=== PATIENT | male | born 1940 | race Caucasian/White ===

== ENCOUNTER 2020-09-22 07:52 | Day surgery (SDC) | payer OTHER ==
[2020-09-14 15:50] LABS: BASOPHILS # (AUTO) 0.1 X10'3 (0-0.2); BASOPHILS % (AUTO) 0.9 % (0-1); EOSINOPHILS # (AUTO) 0.1 X10'3 (0-0.9); EOSINOPHILS % (AUTO) 1.2 % (0-6); LYMPHOCYTES # (AUTO) 1.5 X10'3 (1.1-4.8); LYMPHOCYTES % (AUTO) 21.4 % (21-51); MEAN CORPUSCULAR HEMOGLOBIN 31.4 PG (27.0-31.0); MEAN CORPUSCULAR HGB CONC 33.7 g/dL (33.0-36.5); MEAN CORPUSCULAR VOLUME 93.4 FL (78-98); MEAN PLATELET VOLUME 8.3 FL (7.4-10.4); MONOCYTES # (AUTO) 0.6 X10'3 (0-0.9); MONOCYTES % (AUTO) 7.9 % (2-12); NEUTROPHILS # (AUTO) 4.9 X10'3 (1.8-7.7); NEUTROPHILS % (AUTO) 68.6 % (42-75); PRE OP HEMATOCRIT 43.4 % (42.0-52.0); PRE OP HEMOGLOBIN 14.6 g/dL (14.0-17.9); PRE OP PLATELET COUNT 186 X10'3 (140-440); RED BLOOD COUNT 4.64 X10'6 (4.70-6.10); RED CELL DISTRIBUTION WIDTH 13.2 % (11.5-14.5)
[2020-09-14 16:04] LABS: ALBUMIN 3.9 G/DL (3.4-5.0); ALBUMIN/GLOBULIN RATIO 1.2 (1.1-1.5); ALKALINE PHOSPHATASE 150 IU/L (46-116); BLOOD UREA NITROGEN 20 MG/DL (7-18); BUN/CREATININE RATIO 17.7 (5.4-32.0); CHLORIDE 105 MMOL/L (99-107); CREATININE 1.13 MG/DL (0.60-1.10); PRE OP ALT 25 U/L (30-65); PRE OP ANION GAP 10 (8-16); PRE OP AST 20 U/L (10-37); PRE OP BILIRUB, TOTAL 0.4 MG/DL (0.0-1.0); PRE OP GLUCOSE 90 MG/DL (70-104); PRE OP POTASSIUM 3.8 MMOL/L (3.4-5.1); PRE OP SODIUM 141 MMOL/L (135-145); TOTAL CARBON DIOXIDE 25.6 MMOL/L (24-32); TOTAL PROTEIN 7.1 G/DL (6.4-8.2); eGFR 62 ML/MIN
[~2020-09-22] VITALS: Ht 172.7 cm; Wt 93.4 kg
[2020-09-22] VITALS (7 sets, daily range): BP systolic 140–167; BP diastolic 81–93
[~2020-09-22 07:52] MED LIST: IBUP-2697 PO; ceFAZolin 2gm in dextrose, iso 50 ML IV ONE; famotidine 20mg tablet PO ONE; ringers solution, lacted 1,000 ML IV SCH; vancomycin 1,500 MG in NS 300ml IV soln IV ONE
[2020-09-22] MEDS ORDERED: methylPREDNISolone sod succ 125mg/2ml vial ONE (09:50)
[2020-09-22] MEDS ORDERED: BUPIVAcaine/PF 2.5 mg/ml (0.25%) 30ml vial ONE (09:50)
[2020-09-22] MEDS ORDERED: midazolam 1 mg/ML 2ml injection ONE (10:04)
[2020-09-22] MEDS ORDERED: fentaNYL/PF 50MCG/1 ML 2ML syringe ONE (10:04)
[2020-09-22] MEDS ORDERED: propofol inj 20 ML IV ONE (10:20)
[2020-09-22] MEDS ORDERED: LIDOcaine 0.5% (5mg/ml) 50ml vial ONE (10:26)
--- NOTE | 2020-09-22 10:44 | NUR ---
Received from OR via [facility] , accompanied by Anesthesiologist MIHAI and report given by Anesthesiolgist. PATIENT WITH SPLINT TO RIGHT UE WITH NO DRAINAGE. SLING DONNED BY KAPIL HUYNH. +CA REFILL TO ALL FINGERS/ PWD AT THIS TIME WITH NO C.O. PAIN. VSS Addendum: 09/22/20 at 1055 by Raul Ahumada RN, RN Amended: Links added.
[2020-09-22] MEDS ORDERED: ondansetron/PF 4mg/2ml inj IV PRN (10:50)
[2020-09-22] MEDS ORDERED: ringers solution, lacted 1,000 ML IV SCH (10:50)
[2020-09-22] MEDS ORDERED: morphine 2 MG/ML inj. syringe IV PRN (10:50)
[2020-09-22] MEDS ORDERED: proCHLORperazine 10 MG/2 ml inj IV PRN (10:50)
[2020-09-22] MEDS ORDERED: acetaminophen 1,000mg/100ml IV 100 ML IV PRN (10:50)
[2020-09-22] MEDS ORDERED: meperidine/PF 25mg/ml syringe IV PRN ×3 (10:50)
[2020-09-22] MEDS ORDERED: morphine 4 MG/ML inj SYRINge IV PRN (10:50)
[2020-09-22] MEDS ORDERED: hydrALAZINE 20mg/ml inj. IV PRN (10:50)
[2020-09-22] MEDS ORDERED: labetalol 20mg/4ml (5mg/ml) syringe IV PRN (10:50)
--- NOTE | 2020-09-22 11:41 | NUR ---
All dc criteria for discharge home has been met. IV taken out without complications. All questions answered regarding dc paperwork. Vss. Significant other present to take patient home. Dressings cdi and vital signs stable. Taken out via wheelchair to personal vehicle where patient taken home by family/friend. Addendum: 09/22/20 at 1159 by Raul Ahumada RN, RN Amended: Links added.
== END 2020-09-22 11:34 | disposition home or self-care (01) ==
LOC: PAS 07:52
PROVIDERS: ATTEND Orthopaedic Surgery
DX: G56.01 Carpal tunnel syndrome, right upper limb (principal); G56.21 Lesion of ulnar nerve, right upper limb; M19.90 Unspecified osteoarthritis, unspecified site; E66.8 Other obesity; Z68.31 Body mass index [BMI] 31.0-31.9, adult; Z20.822 Contact with and (suspected) exposure to COVID-19; Z95.0 Presence of cardiac pacemaker; Z79.899 Other long term (current) drug therapy
CPT/HCPCS: 36415; 64719; 64721; 80053; 82948; 85025; 93005; A6222; J2001; J2250; J2704; J2930; J3010; J3370; J3490; J7040; U0003; A4215; A4618; A6449; A7000; J7120

== ENCOUNTER 2021-08-14 06:07 | Day surgery (SDC) | payer OTHER ==
[2021-08-14] VITALS (7 sets, daily range): BP systolic 152–168; BP diastolic 72–86
[~2021-08-14] VITALS: Ht 175.3 cm; Wt 87.0 kg
[~2021-08-14 06:07] MED LIST changes: -ceFAZolin 2gm in dextrose, iso 50 ML IV ONE; -famotidine 20mg tablet PO ONE; -ringers solution, lacted 1,000 ML IV SCH; -vancomycin 1,500 MG in NS 300ml IV soln IV ONE
[2021-08-14] MEDS ORDERED: cefazolin/dext.iso 2gm/50ml 50 ML IV ONE (06:47)
[2021-08-14] MEDS ORDERED: vancomycin/NS 1 GM ADD-VANTAGE 250 ML X 1 DOSE IV ONE (06:50)
[2021-08-14] MEDS ORDERED: normal saline 1000ml 1,000 ML IV SCH (06:50)
[2021-08-14] MEDS ORDERED: DORZ10DR10 LEFTEYE (07:03)
[2021-08-14] MEDS ORDERED: AMLO2.5T4 PO (07:03)
[2021-08-14] MEDS ORDERED: DORZ10DR10 RIGHTEYE (07:03)
[2021-08-14 08:09] LABS: BASOPHILS % (AUTO) 0.6 % (0-1); EOSINOPHILS # (AUTO) 0.2 X10'3 (0-0.9); EOSINOPHILS % (AUTO) 2.8 % (0-6); HEMATOCRIT 37.8 % (42.0-52.0); HEMOGLOBIN 12.8 g/dl (14.0-17.9); MEAN CORPUSCULAR HGB CONC 33.8 g/dL (33.0-36.5); MEAN CORPUSCULAR VOLUME 94.8 FL (78-98); MEAN PLATELET VOLUME 7.8 FL (7.4-10.4); MONOCYTES # (AUTO) 0.6 X10'3 (0-0.9); MONOCYTES % (AUTO) 8.6 % (2-12); NEUTROPHILS # (AUTO) 5.1 X10'3 (1.8-7.7); PLATELET COUNT 294 X10'3 (140-440); RED BLOOD COUNT 3.99 X10'6 (4.70-6.10); RED CELL DISTRIBUTION WIDTH 13.6 % (11.5-14.5); WHITE BLOOD COUNT 6.9 X10'3 (4.5-11.0)
[2021-08-14 08:10] LABS: ANION GAP 9 (8-16); BLOOD UREA NITROGEN 18 MG/DL (7-18); BUN/CREATININE RATIO 18.6 (5.4-32.0); CALCIUM 8.4 MG/DL (8.5-10.1); CHLORIDE 107 MMOL/L (99-107); CREATININE 0.97 MG/DL (0.60-1.10); GLUCOSE 111 MG/DL (70-104); POTASSIUM 4.5 MMOL/L (3.5-5.1); SODIUM 141 MMOL/L (135-145); TOTAL CARBON DIOXIDE 24.8 MMOL/L (24-32); eGFR 74 ML/MIN
[2021-08-14] MEDS ORDERED: vancomycin 1,000mg inj ONE (08:37)
[2021-08-14] MEDS ORDERED: fentaNYL/PF 50MCG/1 ML 2ML syringe ONE (08:37)
[2021-08-14] MEDS ORDERED: midazolam 1 mg/ML 2ml injection ONE ×2 (08:37→10:00)
[2021-08-14] MEDS ORDERED: LIDOCAINE 2% w/EPI 1:100:000 30mL injection MDV**cath lab 1 only ONE (08:49)
[2021-08-14] MEDS ORDERED: HYDROcodone/acetaminophen 10/325mg tab PO PRN (11:30)
[2021-08-14] MEDS ORDERED: HYDROcodone/acetaminophen 5mg/325mg tablet PO PRN (11:30)
--- NOTE | 2021-08-14 11:46 | NUR ---
Delay in fuel cell battery technician present for cxr but states machine not connecting. new machine on way from xray
== END 2021-08-14 12:50 | disposition home or self-care (01) ==
LOC: SSTAY O 06:07
PROVIDERS: ATTEND Internal Medicine Cardiovascular Disease
DX: Z45.010 Encounter for checking and testing of cardiac pacemaker pulse generator [battery] (principal); I10 Essential (primary) hypertension; Z79.01 Long term (current) use of anticoagulants; Z79.899 Other long term (current) drug therapy
CPT/HCPCS: 33208; 33233; 33234; 36415; 71045; 80048; 83735; 85025; 85610; 93005; 99152; 99153; C1785; C1894; C1898; J2250; J3010; J3370; J3490; J7030; 33216; 33228; A4565; A4620; A6258

== ENCOUNTER 2021-11-10 22:14 | Inpatient (IN) | payer OTHER, MEDICARE ==
[~2021-11-10] VITALS: Ht 175.3 cm; Wt 89.0 kg
[~2021-11-10 22:14] MED LIST changes: +AMLO2.5T4 PO; +DORZ10DR10 EACHEYE; +DORZ10DR10 LEFTEYE
--- NOTE | 2021-11-10 22:31 | NUR ---
AGREE WITH LVNS TRIAGE
[2021-11-10] MEDS ORDERED: normal saline 1000ML IV soln IVB ONE (22:50)
[2021-11-10] MEDS ORDERED: ondansetron/PF 4mg/2ml inj IV ONE (22:50)
[2021-11-10 23:02] LABS: BASOPHILS % (AUTO) 0.4 % (0-1); EOSINOPHILS # (AUTO) 0.1 X10'3 (0-0.9); EOSINOPHILS % (AUTO) 0.5 % (0-6); HEMATOCRIT 26.6 % (42.0-52.0); HEMOGLOBIN 8.9 g/dl (14.0-17.9); LYMPHOCYTES # (AUTO) 1.5 X10'3 (1.1-4.8); LYMPHOCYTES % (AUTO) 14.9 % (21-51); MEAN CORPUSCULAR HGB CONC 33.4 g/dL (33.0-36.5); MEAN CORPUSCULAR VOLUME 92.6 FL (78-98); MEAN PLATELET VOLUME 7.8 FL (7.4-10.4); MONOCYTES # (AUTO) 0.5 X10'3 (0-0.9); MONOCYTES % (AUTO) 4.9 % (2-12); NEUTROPHILS # (AUTO) 8.2 X10'3 (1.8-7.7); NEUTROPHILS % (AUTO) 79.3 % (42-75); PLATELET COUNT 217 X10'3 (140-440); RED BLOOD COUNT 2.87 X10'6 (4.70-6.10); WHITE BLOOD COUNT 10.3 X10'3 (4.5-11.0)
[2021-11-10 23:16] LABS: ALANINE AMINOTRANSFERASE 15 U/L (12-78); ALBUMIN 3.1 G/DL (3.4-5.0); ALBUMIN/GLOBULIN RATIO 1.2 (1.1-1.5); ALKALINE PHOSPHATASE 93 IU/L (46-116); ANION GAP 5 (8-16); ASPARTATE AMINO TRANSFERASE 11 U/L (10-37); BILIRUBIN,TOTAL 0.2 MG/DL (0.1-1.0); BLOOD UREA NITROGEN 35 MG/DL (7-18); BUN/CREATININE RATIO 28.2 (5.4-32.0); CHLORIDE 109 MMOL/L (99-107); CREATININE 1.24 MG/DL (0.60-1.10); GLUCOSE 199 MG/DL (70-104); POTASSIUM 4.8 MMOL/L (3.5-5.1); SODIUM 137 MMOL/L (135-145); TOTAL CARBON DIOXIDE 22.9 MMOL/L (24-32); TOTAL PROTEIN 5.6 G/DL (6.4-8.2); eGFR 56 ML/MIN
[2021-11-11] VITALS (7 sets, daily range): BP systolic 116–170; BP diastolic 61–92
[2021-11-11 00:05] LABS: HEMATOCRIT 24.2 % (42.0-52.0); HEMOGLOBIN 8.2 g/dl (14.0-17.9); MEAN CORPUSCULAR HGB CONC 34.1 g/dL (33.0-36.5); MEAN CORPUSCULAR VOLUME 93.8 FL (78-98); MEAN PLATELET VOLUME 7.9 FL (7.4-10.4); PLATELET COUNT 192 X10'3 (140-440); RED BLOOD COUNT 2.58 X10'6 (4.70-6.10); RED CELL DISTRIBUTION WIDTH 13.9 % (11.5-14.5); WHITE BLOOD COUNT 10.5 X10'3 (4.5-11.0)
[2021-11-11] MEDS ORDERED: acetaminophen 325mg tablet PO PRN ×2 (00:45)
[2021-11-11] MEDS ORDERED: magnesium Cl slow-release 64mg tablet PO PRN (00:45)
[2021-11-11] MEDS ORDERED: magnesium 2GM in 50ml NS 50 ML IV PRN (00:45)
[2021-11-11] MEDS ORDERED: potassium CL 10mEq/100ml bag 100 ML IV PRN (00:45)
[2021-11-11] MEDS ORDERED: ondansetron/PF 4mg/2ml inj IV PRN (00:45)
[2021-11-11] MEDS ORDERED: HYDROcodone/acetaminophen 5mg/325mg tablet PO PRN (00:45)
[2021-11-11] MEDS ORDERED: POTASSIUM BICARB 20meq eff tab 20 MEQ TABLET.EFF PO PRN ×2 (00:45)
[2021-11-11] MEDS ORDERED: morphine 2 MG/ML inj. syringe IV PRN (00:45)
[2021-11-11] MEDS ORDERED: mag hydrox/Alum hydrox/simeth 30ml oral suspension PO PRN (00:45)
[2021-11-11] MEDS ORDERED: magnesium 4gm in 100ml NS 100 ML IV PRN (00:45)
[2021-11-11] MEDS: normal saline 1000ml 1,000 ML IV SCH ×3 (01:09→21:40)
[2021-11-11 03:16] LABS: CLARITY,URINE CLEAR (Clear); COLOR,URINE YELLOW (Yellow); GLUCOSE, URINE NEGATIVE (Neg); KETONES,URINE NEGATIVE (Neg); LEUKOCYTE ESTERASE ,URINE NEGATIVE (Neg); NITRITES, URINE NEGATIVE (Neg); OCCULT BLOOD,URINE NEGATIVE (Neg); PH,URINE 5.5 (4.8-8.0); PROTEIN,URINE NEGATIVE (Neg); UROBILINOGEN,URINE 0.2 E.U/dL (0.2-1.0)
[2021-11-11 03:21] LABS: UA COLLECTION TYPE CLN CATCH MIDSTREAM
[2021-11-11 07:31] LABS: BASOPHILS # (AUTO) 0.1 X10'3 (0-0.2); BASOPHILS % (AUTO) 0.6 % (0-1); EOSINOPHILS # (AUTO) 0.1 X10'3 (0-0.9); HEMATOCRIT 27.8 % (42.0-52.0); HEMOGLOBIN 9.3 g/dl (14.0-17.9); LYMPHOCYTES # (AUTO) 1.9 X10'3 (1.1-4.8); LYMPHOCYTES % (AUTO) 20.3 % (21-51); MEAN CORPUSCULAR HEMOGLOBIN 31.4 PG (27.0-31.0); MEAN CORPUSCULAR HGB CONC 33.4 g/dL (33.0-36.5); MEAN CORPUSCULAR VOLUME 93.8 FL (78-98); MEAN PLATELET VOLUME 7.8 FL (7.4-10.4); MONOCYTES # (AUTO) 0.6 X10'3 (0-0.9); MONOCYTES % (AUTO) 5.9 % (2-12); NEUTROPHILS # (AUTO) 6.9 X10'3 (1.8-7.7); NEUTROPHILS % (AUTO) 72.2 % (42-75); PLATELET COUNT 180 X10'3 (140-440); RED BLOOD COUNT 2.96 X10'6 (4.70-6.10); RED CELL DISTRIBUTION WIDTH 14.3 % (11.5-14.5); WHITE BLOOD COUNT 9.6 X10'3 (4.5-11.0)
[2021-11-11 07:40] LABS: % IRON SATURATION 79 % (11-46); IRON 213 UG/DL (53-167); TOTAL IRON BINDING CAPACITY 269 UG/DL (259-388)
[2021-11-11] MEDS: pantoprazole 40MG/NS 100ML BAG 100 ML IV SCH ×2 (08:40→19:53)
[2021-11-11] MEDS: metroNIDAZOLE-Flagyl 500mg/NS 100 ML IV SCH ×3 (08:40→23:59)
[2021-11-11] MEDS: amLODIPine 2.5mg tablet PO SCH (08:42)
[2021-11-11] MEDS: K and/or MAG REPLACEMENT MC SCH ×2 (08:50→20:00)
[2021-11-11] MEDS: dorzolamide/timolol (Cosopt) ophthalmic drops 10ml bottle EACHEYE SCH ×2 (10:10→19:58)
[2021-11-11] MEDS: ciprofloxacin lact 400MG/200ML 200 ML IV SCH ×2 (10:11→21:37)
--- NOTE | 2021-11-11 12:00 | NUR ---
attempted to call report, transferred x3 times, no answer
--- NOTE | 2021-11-11 12:18 | NUR ---
Patient in room ED 9. I have received report from Kathryn DICK and had the opportunity to ask questions and assume patient care.
[2021-11-11] MEDS ORDERED: PEG 3350/Na sulf,bicarb,Cl/KCl oral sol 4 liter bottle PO ONE (12:45)
[2021-11-11] MEDS ORDERED: temazepam 15mg capsule PO PRN (21:00)
[2021-11-12] VITALS (8 sets, daily range): BP systolic 106–150; BP diastolic 54–76
[2021-11-12 06:14] LABS: ALANINE AMINOTRANSFERASE 13 U/L (12-78); ALBUMIN 2.6 G/DL (3.4-5.0); ALBUMIN/GLOBULIN RATIO 1.2 (1.1-1.5); ALKALINE PHOSPHATASE 72 IU/L (46-116); ANION GAP 7 (8-16); ASPARTATE AMINO TRANSFERASE 14 U/L (10-37); BILIRUBIN,TOTAL 0.3 MG/DL (0.1-1.0); BLOOD UREA NITROGEN 18 MG/DL (7-18); BUN/CREATININE RATIO 18.9 (5.4-32.0); CALCIUM 7.5 MG/DL (8.5-10.1); CHLORIDE 114 MMOL/L (99-107); CREATININE 0.95 MG/DL (0.60-1.10); GLUCOSE 105 MG/DL (70-104); MAGNESIUM 1.9 MG/DL (1.5-2.4); PHOSPHORUS 2.6 MG/DL (2.3-4.5); POTASSIUM 3.8 MMOL/L (3.5-5.1); SODIUM 145 MMOL/L (135-145); TOTAL CARBON DIOXIDE 24.5 MMOL/L (24-32); TOTAL PROTEIN 4.7 G/DL (6.4-8.2); eGFR 76 ML/MIN
[2021-11-12 06:26] LABS: BASOPHILS % (AUTO) 0.6 % (0-1); EOSINOPHILS # (AUTO) 0.2 X10'3 (0-0.9); EOSINOPHILS % (AUTO) 2.4 % (0-6); HEMATOCRIT 23.2 % (42.0-52.0); HEMOGLOBIN 7.8 g/dl (14.0-17.9); LYMPHOCYTES # (AUTO) 1.4 X10'3 (1.1-4.8); LYMPHOCYTES % (AUTO) 22.6 % (21-51); MEAN CORPUSCULAR HEMOGLOBIN 31.5 PG (27.0-31.0); MEAN CORPUSCULAR HGB CONC 33.8 g/dL (33.0-36.5); MEAN CORPUSCULAR VOLUME 93.2 FL (78-98); MEAN PLATELET VOLUME 7.9 FL (7.4-10.4); MONOCYTES # (AUTO) 0.4 X10'3 (0-0.9); MONOCYTES % (AUTO) 6.8 % (2-12); NEUTROPHILS # (AUTO) 4.3 X10'3 (1.8-7.7); NEUTROPHILS % (AUTO) 67.6 % (42-75); PLATELET COUNT 150 X10'3 (140-440); RED BLOOD COUNT 2.49 X10'6 (4.70-6.10); RED CELL DISTRIBUTION WIDTH 14.5 % (11.5-14.5); WHITE BLOOD COUNT 6.3 X10'3 (4.5-11.0)
--- NOTE | 2021-11-12 06:42 | NUR ---
Problems reprioritized. Patient report given, questions answered & plan of care reviewed with JASSI DICK.
[2021-11-12] MEDS: normal saline 1000ml 1,000 ML IV SCH ×2 (06:45→10:59)
[2021-11-12] MEDS: K and/or MAG REPLACEMENT MC SCH ×2 (07:05→20:00)
[2021-11-12] MEDS: pantoprazole 40MG/NS 100ML BAG 100 ML IV SCH ×2 (07:57→20:09)
[2021-11-12] MEDS: dorzolamide/timolol (Cosopt) ophthalmic drops 10ml bottle EACHEYE SCH ×2 (08:00→22:19)
[2021-11-12] MEDS: amLODIPine 2.5mg tablet PO SCH (08:10)
[2021-11-12] MEDS ORDERED: fentaNYL/PF 50MCG/1 ML 2ML syringe ONE (08:38)
[2021-11-12] MEDS ORDERED: MIDAZolam 1 MG/ML 5ML VIAL ONE (08:39)
[2021-11-12] MEDS: metroNIDAZOLE-Flagyl 500mg/NS 100 ML IV SCH ×2 (10:59→17:07)
[2021-11-12] MEDS: ciprofloxacin lact 400MG/200ML 200 ML IV SCH ×2 (12:15→22:19)
[2021-11-12 15:00] LABS: BASOPHILS # (AUTO) 0.1 X10'3 (0-0.2); BASOPHILS % (AUTO) 0.9 % (0-1); EOSINOPHILS # (AUTO) 0.1 X10'3 (0-0.9); HEMATOCRIT 24.1 % (42.0-52.0); MEAN CORPUSCULAR HGB CONC 33.2 g/dL (33.0-36.5); MEAN CORPUSCULAR VOLUME 93.4 FL (78-98); MEAN PLATELET VOLUME 7.2 FL (7.4-10.4); MONOCYTES # (AUTO) 0.4 X10'3 (0-0.9); MONOCYTES % (AUTO) 6.8 % (2-12); NEUTROPHILS # (AUTO) 4.4 X10'3 (1.8-7.7); NEUTROPHILS % (AUTO) 73.3 % (42-75); PLATELET COUNT 158 X10'3 (140-440); RED BLOOD COUNT 2.58 X10'6 (4.70-6.10); RED CELL DISTRIBUTION WIDTH 14.4 % (11.5-14.5); WHITE BLOOD COUNT 6.1 X10'3 (4.5-11.0)
--- NOTE | 2021-11-12 18:25 | NUR ---
REPORT GIVEN TO KACI DICK, SHE IS RESUMING CARE OF PATIENT. PATIENT DOING WELL.
[2021-11-13] MEDS: metroNIDAZOLE-Flagyl 500mg/NS 100 ML IV SCH ×2 (00:03→08:52)
[2021-11-13 02:00] VITALS: BP 104/57
[2021-11-13] MEDS: normal saline 1000ml 1,000 ML IV SCH (02:45)
--- NOTE | 2021-11-13 05:58 | NUR ---
PATIENT SLEPT WELL THROUGH THE NIGHT WITHOUT ANY C/O PAIN AND NO BLOODY STOOLS. STATED ANXIOUS TO GO HOME TODAY. REPORT TO EARLY SHIFT
[2021-11-13 06:00] VITALS: BP 122/65
--- NOTE | 2021-11-13 06:38 | NUR ---
Problems reprioritized. Patient report given, questions answered & plan of care reviewed with PATSY DICK.
[2021-11-13 06:46] LABS: BASOPHILS % (AUTO) 0.6 % (0-1); EOSINOPHILS # (AUTO) 0.2 X10'3 (0-0.9); EOSINOPHILS % (AUTO) 2.2 % (0-6); HEMATOCRIT 23.6 % (42.0-52.0); LYMPHOCYTES # (AUTO) 1.4 X10'3 (1.1-4.8); LYMPHOCYTES % (AUTO) 19.1 % (21-51); MEAN CORPUSCULAR HEMOGLOBIN 31.5 PG (27.0-31.0); MEAN CORPUSCULAR HGB CONC 33.8 g/dL (33.0-36.5); MEAN CORPUSCULAR VOLUME 93.3 FL (78-98); MEAN PLATELET VOLUME 7.6 FL (7.4-10.4); MONOCYTES # (AUTO) 0.6 X10'3 (0-0.9); MONOCYTES % (AUTO) 7.8 % (2-12); NEUTROPHILS # (AUTO) 5.2 X10'3 (1.8-7.7); NEUTROPHILS % (AUTO) 70.3 % (42-75); PLATELET COUNT 168 X10'3 (140-440); RED BLOOD COUNT 2.53 X10'6 (4.70-6.10); RED CELL DISTRIBUTION WIDTH 14.5 % (11.5-14.5); WHITE BLOOD COUNT 7.3 X10'3 (4.5-11.0)
[2021-11-13 07:04] LABS: ALANINE AMINOTRANSFERASE 12 U/L (12-78); ALBUMIN 2.6 G/DL (3.4-5.0); ALBUMIN/GLOBULIN RATIO 1.1 (1.1-1.5); ALKALINE PHOSPHATASE 81 IU/L (46-116); ANION GAP 8 (8-16); ASPARTATE AMINO TRANSFERASE 18 U/L (10-37); BILIRUBIN,TOTAL 0.3 MG/DL (0.1-1.0); BLOOD UREA NITROGEN 11 MG/DL (7-18); BUN/CREATININE RATIO 10.5 (5.4-32.0); CALCIUM 7.6 MG/DL (8.5-10.1); CHLORIDE 113 MMOL/L (99-107); CREATININE 1.05 MG/DL (0.60-1.10); GLUCOSE 103 MG/DL (70-104); MAGNESIUM 1.7 MG/DL (1.5-2.4); POTASSIUM 3.4 MMOL/L (3.5-5.1); SODIUM 144 MMOL/L (135-145); TOTAL CARBON DIOXIDE 22.7 MMOL/L (24-32); TOTAL PROTEIN 4.9 G/DL (6.4-8.2); eGFR 68 ML/MIN
[2021-11-13] MEDS: K and/or MAG REPLACEMENT MC SCH (08:00)
[2021-11-13] MEDS ORDERED: PANT40TA54 PO (08:29)
[2021-11-13] MEDS ORDERED: CIPR-202 PO (08:29)
[2021-11-13] MEDS ORDERED: METR-159 PO (08:29)
[2021-11-13] MEDS: pantoprazole 40MG/NS 100ML BAG 100 ML IV SCH (08:52)
[2021-11-13] MEDS: ciprofloxacin lact 400MG/200ML 200 ML IV SCH (08:52)
[2021-11-13] MEDS: dorzolamide/timolol (Cosopt) ophthalmic drops 10ml bottle EACHEYE SCH (08:53)
[2021-11-13] MEDS: amLODIPine 2.5mg tablet PO SCH (08:53)
[2021-11-13 10:00] VITALS: BP 136/63
[2021-11-15 10:50] LABS: OCCULT BLOOD STOOL POSITIVE (Neg)
== END 2021-11-13 13:10 | disposition home or self-care (01) | DRG 379 ==
LOC: ER 22:15 → ED HOLD 11-11 00:53 → ORTHO 4S 11-11 12:45
PROVIDERS: ADMIT Internal Medicine; ATTEND Family Medicine
PROC: 30233N1 Transfusion of Nonautologous Red Blood Cells into Peripheral Vein, Percutaneous Approach (ICD-10-PCS; 2021-11-11)
PROC: 0DBN8ZZ Excision of Sigmoid Colon, Via Natural or Artificial Opening Endoscopic (ICD-10-PCS; principal; 2021-11-12)
PROC: 0DBL8ZZ Excision of Transverse Colon, Via Natural or Artificial Opening Endoscopic (ICD-10-PCS; 2021-11-12)
DX: K57.31 Diverticulosis of large intestine without perforation or abscess with bleeding (principal); K63.5 Polyp of colon; I25.10 Atherosclerotic heart disease of native coronary artery without angina pectoris; M19.90 Unspecified osteoarthritis, unspecified site; F17.290 Nicotine dependence, other tobacco product, uncomplicated; N18.30 Chronic kidney disease, stage 3 unspecified; D64.9 Anemia, unspecified; M54.9 Dorsalgia, unspecified; Z20.822 Contact with and (suspected) exposure to COVID-19; I12.9 Hypertensive chronic kidney disease with stage 1 through stage 4 chronic kidney disease, or unspecified chronic kidney disease; Z66 Do not resuscitate; Z86.16 Personal history of COVID-19; Z95.0 Presence of cardiac pacemaker; Z79.899 Other long term (current) drug therapy
CPT/HCPCS: 36415; 36430; 45380; 45385; 71045; 74176; 80053; 81003; 82272; 83540; 83550; 83605; 83735; 84100; 84145; 84443; 85025; 85027; 85610; 86885; 86900; 86901; 86920; 87040; 87081; 87635; 99152; 99153; 99285; A4620; C1773; C9113; G0378; J0744; J2250; J2405; J3010; J3490; J7030; P9016

== ENCOUNTER 2023-12-10 08:07 | Inpatient (IN) | payer OTHER, MEDICARE ==
[~2023-12-10] VITALS: Ht 175.3 cm; Wt 84.3 kg
[~2023-12-10 08:07] MED LIST changes: -DORZ10DR10 EACHEYE; -DORZ10DR10 LEFTEYE; -IBUP-2697 PO; +PANT40TA54 PO
[2023-12-10] MEDS ORDERED: iohexol 350MG/ML 100ml bottle IV ONE (08:14)
[2023-12-10 08:55] LABS: BASOPHILS % (AUTO) 0.5 % (0-1); EOSINOPHILS # (AUTO) 0.1 X10'3 (0-0.9); EOSINOPHILS % (AUTO) 1.1 % (0-6); HEMATOCRIT 38.3 % (42.0-52.0); HEMOGLOBIN 12.7 g/dl (14.0-17.9); LYMPHOCYTES # (AUTO) 0.9 X10'3 (1.1-4.8); LYMPHOCYTES % (AUTO) 15.1 % (21-51); MEAN CORPUSCULAR HEMOGLOBIN 32.2 PG (27.0-31.0); MEAN CORPUSCULAR HGB CONC 33.1 g/dL (33.0-36.5); MEAN CORPUSCULAR VOLUME 97.3 FL (78-98); MONOCYTES # (AUTO) 0.5 X10'3 (0-0.9); MONOCYTES % (AUTO) 8.9 % (2-12); NEUTROPHILS # (AUTO) 4.3 X10'3 (1.8-7.7); NEUTROPHILS % (AUTO) 74.4 % (42-75); PLATELET COUNT 168 X10'3 (140-440); RED BLOOD COUNT 3.94 X10'6 (4.70-6.10); RED CELL DISTRIBUTION WIDTH 13.6 % (11.5-14.5); WHITE BLOOD COUNT 5.7 X10'3 (4.5-11.0)
[2023-12-10 08:59] LABS: ANION GAP 9 (8-16); BLOOD UREA NITROGEN 19 MG/DL (7-18); BUN/CREATININE RATIO 17.1 (10.0-20.0); CALCIUM 7.9 MG/DL (8.5-10.1); CHLORIDE 105 MMOL/L (99-107); CREATININE 1.11 MG/DL (0.60-1.10); GLUCOSE 108 MG/DL (70-104); POTASSIUM 3.7 MMOL/L (3.5-5.1); SODIUM 137 MMOL/L (135-145); TOTAL CARBON DIOXIDE 22.7 MMOL/L (24-32); eGFR 63 ML/MIN
[2023-12-10 09:02] LABS: APTT 27 SECONDS (22-32); INR 1.1 INR; PROTHROMBIN TIME 11.5 SECONDS (9.0-12.0)
[2023-12-10] MEDS ORDERED: mag hydrox/Alum hydrox/simeth 30ml oral suspension PO PRN (09:35)
[2023-12-10] MEDS ORDERED: potassium Cl 20 mEq SR tablet PO PRN ×2 (09:35)
[2023-12-10] MEDS ORDERED: magnesium 2GM in 50ml NS 50 ML IV PRN (09:35)
[2023-12-10] MEDS ORDERED: potassium Cl 40MEQ/1/2NS 520ml 520 ML IV PRN (09:35)
[2023-12-10] MEDS ORDERED: magnesium 4gm in 100ml NS 100 ML IV PRN (09:35)
[2023-12-10] MEDS ORDERED: magnesium hydroxide 30ml (MOM) UD suspension PO PRN (09:35)
[2023-12-10] MEDS ORDERED: magnesium Cl slow-release 64mg tablet PO PRN (09:35)
[2023-12-10] MEDS ORDERED: ondansetron/PF 4mg/2ml inj IV PRN (09:35)
[2023-12-10] MEDS ORDERED: acetaminophen 325mg tablet PO PRN ×2 (09:35)
[2023-12-10] MEDS: clopidogrel 300mg tablet PO ONE (09:41)
[2023-12-10] MEDS: atorvastatin 20mg tablet PO SCH (09:41)
[2023-12-10] MEDS: aspirin 325mg tablet PO ONE (09:41)
[2023-12-10 10:05] LABS: CHOL/HDL RATIO 5.1 (0.00-4.99); CHOLESTEROL 152 MG/DL (0-200); HDL CHOLESTEROL 30 MG/DL (35-60); LDL CHOLESTEROL 104 MG/DL (50-100); TRIGLYCERIDES 104 MG/DL (20-135)
[2023-12-10] MEDS: normal saline 1000ml 1,000 ML IV SCH (10:06)
[2023-12-10] MEDS: enoxaparin 40mg/0.4ml syringe SUBCUT SCH (10:06)
[2023-12-10 11:13] LABS: BILIRUBIN,URINE NEGATIVE (Neg); CLARITY,URINE CLEAR (Clear); COLOR,URINE YELLOW (Yellow); GLUCOSE, URINE NEGATIVE (Neg); KETONES,URINE NEGATIVE (Neg); LEUKOCYTE ESTERASE ,URINE NEGATIVE (Neg); NITRITES, URINE NEGATIVE (Neg); OCCULT BLOOD,URINE NEGATIVE (Neg); PROTEIN,URINE NEGATIVE (Neg); UROBILINOGEN,URINE 0.2 E.U/dL (0.2-1.0)
[2023-12-10 11:16] LABS: UA COLLECTION TYPE CLN CATCH MIDSTREAM
[2023-12-10 11:42] LABS: URINE AMPHETAMINE SCREEN NEGATIVE (Neg); URINE BARBITUATE SCREEN NEGATIVE (Neg); URINE BENZODIAZEPINES SCREEN NEGATIVE (Neg); URINE CANNABINOID SCREEN NEGATIVE (Neg); URINE COCAINE SCREEN NEGATIVE (Neg); URINE METHADONE SCREEN NEGATIVE (Neg); URINE OPIATE SCREEN NEGATIVE (Neg); URINE PHENCYCLIDINE SCREEN NEGATIVE (Neg)
[2023-12-10] MEDS ORDERED: docusate sod 100mg capsule PO SCH (20:00)
[2023-12-10 21:45] VITALS: BP 157/59; PULSE 47; RESP 15; TEMP 98.1; O2SAT 96
[2023-12-11 02:00] VITALS: BP 129/63; PULSE 81; RESP 15; TEMP 98.3; O2SAT 96
[2023-12-11 06:30] LABS: BASOPHILS % (AUTO) 0.6 % (0-1); EOSINOPHILS # (AUTO) 0.1 X10'3 (0-0.9); EOSINOPHILS % (AUTO) 1.9 % (0-6); HEMATOCRIT 42.6 % (42.0-52.0); HEMOGLOBIN 14.4 g/dl (14.0-17.9); LYMPHOCYTES # (AUTO) 1.1 X10'3 (1.1-4.8); LYMPHOCYTES % (AUTO) 18.4 % (21-51); MEAN CORPUSCULAR HEMOGLOBIN 32.9 PG (27.0-31.0); MEAN CORPUSCULAR HGB CONC 33.9 g/dL (33.0-36.5); MEAN CORPUSCULAR VOLUME 97.1 FL (78-98); MEAN PLATELET VOLUME 7.8 FL (7.4-10.4); MONOCYTES # (AUTO) 0.6 X10'3 (0-0.9); MONOCYTES % (AUTO) 9.1 % (2-12); NEUTROPHILS # (AUTO) 4.3 X10'3 (1.8-7.7); PLATELET COUNT 171 X10'3 (140-440); RED BLOOD COUNT 4.39 X10'6 (4.70-6.10); RED CELL DISTRIBUTION WIDTH 13.5 % (11.5-14.5); WHITE BLOOD COUNT 6.2 X10'3 (4.5-11.0)
[2023-12-11 07:04] LABS: ALANINE AMINOTRANSFERASE 20 U/L (12-78); ALBUMIN 3.5 G/DL (3.4-5.0); ALBUMIN/GLOBULIN RATIO 1.1 (1.1-1.5); ALKALINE PHOSPHATASE 103 IU/L (46-116); ANION GAP 6 (8-16); ASPARTATE AMINO TRANSFERASE 19 U/L (10-37); BILIRUBIN,TOTAL 0.6 MG/DL (0.1-1.0); BLOOD UREA NITROGEN 14 MG/DL (7-18); BUN/CREATININE RATIO 14.3 (10.0-20.0); CALCIUM 8.4 MG/DL (8.5-10.1); CHLORIDE 109 MMOL/L (99-107); CREATININE 0.98 MG/DL (0.60-1.10); GLUCOSE 105 MG/DL (70-104); POTASSIUM 3.8 MMOL/L (3.5-5.1); SODIUM 142 MMOL/L (135-145); TOTAL CARBON DIOXIDE 26.6 MMOL/L (24-32); TOTAL PROTEIN 6.7 G/DL (6.4-8.2); eCRCL 29 ML/MIN; eGFR 73 ML/MIN
[2023-12-11] MEDS ORDERED: atorvastatin 20mg tablet PO SCH (08:00)
[2023-12-11] MEDS: aspirin 81mg, enteric-coated 1 TAB TABLET.DR PO SCH (08:46)
[2023-12-11] MEDS: atorvastatin 20mg tablet PO SCH (08:47)
[2023-12-11] MEDS: clopidogrel 75mg tablet PO SCH (08:47)
[2023-12-11 10:00] VITALS: BP 133/72; PULSE 58; RESP 17; TEMP 98.1; O2SAT 99
[2023-12-11] MEDS ORDERED: LISI5TAB22 PO (13:25)
[2023-12-11] MEDS ORDERED: ATOR20TA66 PO (13:25)
[2023-12-11] MEDS ORDERED: ASPI-1071 PO (13:25)
[2023-12-11] MEDS ORDERED: CLOP75TA34 PO (13:25)
[2023-12-12] MEDS ORDERED: atorvastatin 20mg tablet PO SCH (08:00)
== END 2023-12-11 15:08 | disposition home or self-care (01) | DRG 65 ==
LOC: ER 08:07 → ED HOLD 09:36 → ORTHO 4S 21:35
PROVIDERS: ADMIT Internal Medicine; ATTEND Internal Medicine
PROC: B3251ZZ Computerized Tomography (CT Scan) of Bilateral Common Carotid Arteries using Low Osmolar Contrast (ICD-10-PCS; principal; 2023-12-10)
PROC: B32G1ZZ Computerized Tomography (CT Scan) of Bilateral Vertebral Arteries using Low Osmolar Contrast (ICD-10-PCS; 2023-12-10)
PROC: B32R1ZZ Computerized Tomography (CT Scan) of Intracranial Arteries using Low Osmolar Contrast (ICD-10-PCS; 2023-12-10)
PROC: B3281ZZ Computerized Tomography (CT Scan) of Bilateral Internal Carotid Arteries using Low Osmolar Contrast (ICD-10-PCS; 2023-12-10)
DX: I63.89 Other cerebral infarction (principal); G81.94 Hemiplegia, unspecified affecting left nondominant side; I12.9 Hypertensive chronic kidney disease with stage 1 through stage 4 chronic kidney disease, or unspecified chronic kidney disease; N18.30 Chronic kidney disease, stage 3 unspecified; I25.10 Atherosclerotic heart disease of native coronary artery without angina pectoris; Z66 Do not resuscitate; F17.210 Nicotine dependence, cigarettes, uncomplicated; Z95.0 Presence of cardiac pacemaker
CPT/HCPCS: 36415; 70450; 70496; 70498; 70551; 71045; 80048; 80053; 80061; 80305; 81003; 83036; 85025; 85610; 85730; 87081; 92508; 92616; 93005; 93306; 97161; 97535; 99285; G0378; J1650; J3490; J7030; Q9967